=== PATIENT | female | born 1945 | race Caucasian/White ===

== ENCOUNTER 2017-02-15 09:51 | Inpatient (IN) | payer MEDICARE, OTHER ==
[~2017-02-15] VITALS: Ht 170.2 cm; Wt 98.1 kg
--- NOTE | ~2017-02-15 | ECHO ---
Transthoracic Echocardiography Report (TTE) Demographics Patient Name CARMEN LEVI Date of Study 02/15/2017 E Patient Number [id number] Visit Number [id number] Date of 1945 Room Number G6320 Gender Female Number Age 71 year(s) Referring Santy Malone Insurance Compliance Analyst Rocío Trevizo RVT, Physician Ismael REESE Physician Interpreting Efstratiou Credit Collections Rep Physician Faisal Guevara MD Supervising Ordering Efstrafarzana MD/MLP Physician Faisal Guevara MD Nurse Stress Ela Teacher Conclusions Contractility Score Summary Normal Left Ventricular contractility was noted. Summary Technically difficult exam due to lung interference. The estimated left ventricular ejection fraction is 50-55%. Mild concentric left ventricular hypertrophy. Diastolic function indeterminate due to patient's arrhythmia. The right atrium is moderately dilated. Procedure Type of Study TTE procedure:2D Echocardiogram. Procedure Date Date: 02/15/2017 Start: 01:44 PM Study Location: Inpatient Portable Technical Quality: Limited visualization due to lung interference. Indications:Atrial fibrillation. Additional Indications:Sotolol Treatment Appropriate Use Criteria: 8 Patient Status: Routine Rhythm: Atrial fibrillation HR: 95 bpm BP: 117/67 mmHg M-Mode/2D Measurements LV Diastolic Dimension: 4.6 cm LV Systolic Dimension: 2.7 cm LV Septum Diastolic: 1.26 cm LV PW Diastolic: 1.07 cm AO Root Dimension: 2.4 cm Cardiac Output: 3.82 l/min LA Dimension: 4.1 cm LVOT: 1.9 cm LVOT VTI: 14.2 cm RV Base: 3.83 cm LV Stroke volume: 40.24 ml RV Length: 7.48 cm TAPSE: 2.18 cm TDI-S': 11.8 cm/s Doppler Measurements AV Peak Velocity: 1.1 m/s MV Peak E-Wave: 0.82 m/s AV Peak Gradient: 4.84 mmHg AV Mean Gradient: 3 mmHg MV P1/2t: 62 msec LVOT Peak Velocity: 0.68 m/s TR Velocity:1.46 m/s PV Peak Velocity: 0.67 m/s TR Gradient:8.53 mmHg PV Peak Gradient: 1.8 mmHg Estimated RAP:5 mmHg Estimated PASP: 13.53 mmHg Estimated RVSP: 14 mmHg E' Septal Velocity: 0.15 m/s E' Lateral Velocity: 0.12 m/s Findings Left Ventricle Mild concentric left ventricular hypertrophy. Diastolic function indeterminate due to patient's arrhythmia. Right Ventricle Mildly dilated right ventricle. Normal right ventricular systolic performance. Left Atrium Normal left atrial size. There is no evidence of patent foramen ovale or atrial septal defect by color Doppler. Right Atrium The right atrium is moderately dilated. IVC measures 1.69 cm with inspiratory collapse. Mitral Valve Normal mitral valve structure and function. Aortic Valve Normal aortic valve structure and function. Tricuspid Valve Normal tricuspid valve structure and function. Trivial tricuspid regurgitation by color Doppler. Pulmonic Valve Normal pulmonic valve structure and function. Pericardial Effusion No evidence of pericardial effusion. Miscellaneous Visualized portions of the aortic root and ascending aorta appear normal in size. Pleural Effusion No evidence of pleural effusion. Contractility Score LV regional wall motion:(0-Non visualized 1-Normal 2-Hypokinesis 3-Akinesis 4-Dyskinesis 5-Aneurysm) Signature dtt: Yenny Madera dtd: 02/15/17 9044 Physician Self Edit
--- NOTE | ~2017-02-15 | DS ---
PATIENT'S NAME: CARMEN LEVI [facility] AGE: 71 Y [address] ROOM: [address] [place] [address] LOCATION: [facility] ADMIT DATE: 02/15/2017 Discharge Summary DISCHARGE DATE: 02/17/2017 FAMILY PHYSICIAN: Sarina Dc PA-C ATTENDING PHYSICIAN: Ramírez Madera DIAGNOSES AT DISCHARGE: 1. Persistent atrial fibrillation. 2. Hypertension. 3. Hypothyroidism. 4. Obesity. HISTORY: This is a 71-year-old lady, who presented to the office with new- onset atrial fibrillation which was diagnosed at her primary's office. She was started on oral anticoagulation with Eliquis and admitted for attempt to convert pharmacologically. Indeed, after about 24 hours of oral sotalol, she converted to sinus rhythm. She tolerated the medication well without any proarrhythmic side effects. MEDICATIONS: She is being discharged on the following medications: 1. Eliquis 5 mg twice a day. 2. Levothyroxine 125 mcg once a day. 3. Losartan/hydrochlorothiazide 50/12.5 once a day. 4. Sotalol 80 mg twice a day. FOLLOWUP: Follow up with Dr. Dc in 1 week and with myself in 2-3 weeks. RAMÍREZ MADERA MD PE/ayde /[id number] d: 02/17/172050 t: 02/20/17 1143, DISCHARGE SUMMARY
[2017-02-15] MEDS ORDERED: LOSARTAN-HCTZ1 EAC2 PO (10:57)
[2017-02-15] MEDS ORDERED: ELIQUIS5 MG PO (10:57)
[2017-02-15] MEDS ORDERED: LEVOTHROID (S125 MCG PO (10:57)
[2017-02-15] MEDS ORDERED: ALEVE220 M1 PO (10:58)
--- NOTE | 2017-02-15 11:46 | NUR ---
Patient is 71 yo female admitted this morning for new onset of AFib. states she has been feeling off for a little while, states she thought her thyroid was acting up or doing something so she went in to her provider and has new onset of AFib. Patient is admitted for monitoring of new medication. Patient lives by herself in [place]. Saline lock is noted in left dorsal hand without erythema or edema noted at site. Education is given as documented. Patient denies questions. Pneumatics are on bilat calves. pt pedro well. call light is within reach. Report is given to KALEN Ponce.
--- NOTE | 2017-02-15 16:52 | NUR ---
Significant Event: Patient A/O x 3. Up independently in the room. VSS on RA. In and out of Afib/Aflutter and SR. HR's in SR are 60-80's, but when irregular up with 150's (improving throughout the day). Admitted for inititation of Betapace today. Given 5 mg IV lopressor this afternoon to bring HR's <110 for echo. Denies pain. States she can sometimes feel palpitations and PALOMARES. L)hand PIV SL. Denies any other needs throughout the day. Follow up: Continue as per plan of care. EKG q A.M. and monitor QTc interval.
--- NOTE | 2017-02-16 04:42 | NUR ---
Significant Event:A/Ox3. VSS on RA. Patient has stayed in Afib all shift HR 80-130s. HR increase with activity. Up ad seth in room. No c/o pain or SOB, but stated that before her admission and seeing the doctor she had been SOB with activity. Home medications addressed. PIV to L)hand SL. Follow up:Continue to monitor daily EKG during betapace initiation.
--- NOTE | 2017-02-16 12:01 | NUR ---
Introduced self and care management services to patient. Lives in [place] alone, has 2 dogs at home she wants to get home to. May get to go home tomorrow, is feeling better today. Independent at home, denies needs. Asked her if she has any family around to call if she needs help at home and she says she has a brother and nieces and nephews near her. [facility] will follow and assist with dc planning as needs identified.
--- NOTE | 2017-02-16 16:36 | NUR ---
Significant Event: A/O X3, up independantly. ambulates in rai, saline lock L)hand, SR since 9 a.m. good appetite. voids per toilet, BM today. lungs clear, sat 97% RA. Follow up: plan for discharge tomorrow
--- NOTE | 2017-02-17 04:48 | NUR ---
Significant event: A/O X 3 . up ad seth in room. Heart rhythm still in Sinus with no c/o chest pain or SOB. VSS on RA. Plan to d/c home today
[2017-02-17] MEDS ORDERED: BETAPACE (GENER80 MG PO (09:30)
--- NOTE | 2017-02-17 10:54 | NUR ---
PATIENT A/OX3, VSS ON ROOM AIR. QTc ON EKG THIS AM WAS 419. BETAPACE, NEW MEDICATION GONE OVER WITH PATIENT YESTERDAY ON DAY SHIFT. DISMISSAL INSTRUCTIONS GONE OVER WITH PATIENT, NO FURTHER QUESTIONS AT THIS TIME. IV REMOVED FROM LEFT HAND WITHOUT COMPLICATIONS. NO PAIN. ALL BELONGINGS SENT HOME WITH PATIENT.
== END 2017-02-17 10:55 | disposition disaster alternative care site (69) | DRG 310 ==
LOC: GPCU 09:51
PROVIDERS: ADMIT Internal Medicine Cardiovascular Disease
DX: I48.1 Persistent atrial fibrillation (principal); E66.01 Morbid (severe) obesity due to excess calories; I10 Essential (primary) hypertension; E03.9 Hypothyroidism, unspecified; Z68.33 Body mass index [BMI] 33.0-33.9, adult; Z72.0 Tobacco use